=== PATIENT | female | born 1940 | race Caucasian/White ===

== ENCOUNTER → 2016-11-24 | Outpatient (CLI) | payer OTHER ==
[~2016-11-24] MED LIST: ALPRAZOLAM PO; ARANESP; FLEXERIL PO; LIPITOR PO; OMNICEF PO; TOPROL XL PO; TRICOR PO; ZYRTEC PO
--- NOTE | ~2016-11-24 | MY11 ---
[facility] A Service of [facility] RADIOLOGY TEXT RESULTS PATIENT: MISTY LEIVA LOCATION: [facility] #: [id number] : 40 UNIT #: [id number] AGE: [address]: Alan Ritter MD SEX: F ORDER DR: [id number] [facility] [address] [place], [place] [address] [id number] O MR#: [id number] Acc #: [id number] NAME: MISTY LEIVA : 1940 SEX: F STUDY DATE/TIME: 11/24/2016 11:41 UNIT: [facility] ROOM: STUDY DESCRIPTION: MY Mammogram Screening Dig Oneil Attending Physician: Alan Ritter M.D. Referring Physician: Alan Ritter M.D. Ordering Physician: Alan Ritter M.D. Primary Care Physician: Matt Dick M.D. MEDICAL IMAGING REPORT This report is preliminary unless electronic signature is present EXAM Bilateral digital screening with CAD INDICATIONS Routine screening. No current complaints. No family history of breast cancer. COMPARISON 10/02/2014, 08/22/2013. FINDINGS MLO and CC digital views of each breast were obtained. The study was reviewed with a FDA-approved CAD device. Breasts have scattered fibroglandular densities. There are no masses or calcifications. The biopsy clip within the right breast laterally adjacent to some calcifications. IMPRESSION No change and no evidence of malignancy. BIRADS: 2 Benign Finding. Patients over the age of 40 are entered into a reminder system with target due date for the next mammogram. A result letter will also be sent to the patient. Dictated by... Vinicio Hyman M.D. THIS IS AN ELECTRONICALLY VERIFIED REPORT Vinicio Hyman M.D. at 11/25/2016 6:27 AM [facility] A Service of [facility] RADIOLOGY TEXT RESULTS PATIENT: MISTY LEIVA LOCATION: [facility] #: [id number] : 40 UNIT #: [id number] AGE: [address]: Alan Ritter MD SEX: F ORDER DR: DEBBIE/val TD: 11/24/2016 15:37 JOB #: [id number] MEDICAL IMAGING REPORT Page 1 of 1 COPY
== END | disposition home or self-care (01) ==
LOC: CWCC 11:15
DX: Z12.31 Encounter for screening mammogram for malignant neoplasm of breast (principal)
CPT/HCPCS: G0202

== ENCOUNTER → 2016-11-24 | Outpatient (CLI) | payer OTHER ==
--- NOTE | ~2016-11-24 | BD1 ---
[facility] A Service of [facility] RADIOLOGY TEXT RESULTS PATIENT: MISTY LEIVA LOCATION: [facility] : 40 UNIT #: [id number] AGE: [address]: Matt Dick MD SEX: F ORDER DR: [id number] [facility] [address] [place], [place] [address] [id number] O MR#: [id number] Acc #: [id number] NAME: MISTY LEIVA : 1940 SEX: F STUDY DATE/TIME: 11/24/2016 12:06 UNIT: [facility] ROOM: STUDY DESCRIPTION: BD Dexa Bone Dens 1+ Site Attending Physician: Matt Dick M.D. Ordering Physician: Matt Dick M.D. Primary Care Physician: Matt Dick M.D. MEDICAL IMAGING REPORT This report is preliminary unless electronic signature is present EXAM DXA scan 11/24/2016 HISTORY Status post menopause with no hormone replacement therapy. Osteopenia. Hysterectomy at age 19. FINDINGS Bone mineral density in the lumbar spine from L1-L4 is 0.72 g/cm2 which is 3 standard deviations below the mean when compared to the young adult reference population which is characteristic of osteoporosis. This is 0.5 standard deviations below the mean when compared to the age-matched population. Bone mineral density in the left femoral neck was 0.354 g/cm2 which is 4.5 standard deviations below the mean when compared to the young adult reference population which is characteristic of osteoporosis. This is 2.3 standard deviations below the mean when compared to the age-matched population. IMPRESSION Bone mineral density in the lumbar spine and left hip characteristic of osteoporosis. Dictated by... Ky Ovalle M.D. THIS IS AN ELECTRONICALLY VERIFIED REPORT Ky Ovalle M.D. at 11/26/2016 8:21 AM NASRIN/renetta [facility] A Service [facility] RADIOLOGY TEXT RESULTS PATIENT: MISTY LEIVA LOCATION: [facility] : 40 UNIT #: [id number] AGE: [address]: Matt Dick MD SEX: F ORDER DR: TD: 11/24/2016 14:29 JOB #: [id number] MEDICAL IMAGING REPORT Page 1 of 1 COPY
== END | disposition home or self-care (01) ==
LOC: CWCC 11:23
DX: M81.0 Age-related osteoporosis without current pathological fracture (principal)
CPT/HCPCS: 77080

== ENCOUNTER → 2016-12-24 | Outpatient (CLI) | payer OTHER | END | disposition home or self-care (01) | LOC: CSSDAY 11:27 | DX: M81.0 Age-related osteoporosis without current pathological fracture (principal) | CPT/HCPCS: 96372; J0897 ==